=== PATIENT | female | born 1945 ===

== ENCOUNTER 2019-07-07 11:15 | Inpatient (IN) | payer OTHER ==
[~2019-07-07] VITALS: Ht 160 cm; Wt 63.5 kg
[~2019-07-07 11:15] MED LIST: ABILIFY10 MG PO; ARICEPT10 MG PO; CARAFATE PO; CLONAZEPAM0.5 MG PO; CRESTOL PO; DELZICOL400 M1 PO; EST PO; LEXAPRO20 MG PO; LYRICA PO; NORVASC2.5 MG PO; PROSOM PO; VALSARTAN-HCTZ1 EACH PO
[2019-07-20] MEDS ORDERED: CARAFATE1 GM PO (08:15)
[2019-07-20] MEDS ORDERED: PREGABALIN75 MG PO (08:16)
[2019-07-20] MEDS ORDERED: CRESTOR5 MG PO (08:17)
[2019-07-20] MEDS ORDERED: ESTAZOLAM2 MG (08:19)
[2019-07-20] MEDS ORDERED: PERCOCET 5-3251 EACH PO (12:48)
[2019-07-20] MEDS ORDERED: CLONAZEPAM0.5 MG PO (12:48)
[2019-07-20] MEDS ORDERED: COLACE100 MG PO (12:49)
== END 2019-07-21 11:40 | disposition home or self-care (01) | DRG 454 ==
LOC: ADM 11:15 → O/R 07-20 05:15 → SURH 07-20 05:15 → ADM 07-20 11:15 → EDSTATUS 07-20 11:15 → EDBD 07-20 11:15 → SURH 07-20 11:15
PROVIDERS: ADMIT Orthopaedic Surgery Orthopaedic Surgery of the Spine
PROC: 0RG2071 Fusion of 2 or more Cervical Vertebral Joints with Autologous Tissue Substitute, Posterior Approach, Posterior Column, Open Approach (ICD-10-PCS; 2019-07-20)
PROC: 0RT30ZZ Resection of Cervical Vertebral Disc, Open Approach (ICD-10-PCS; 2019-07-20)
PROC: 07DS3ZZ Extraction of Vertebral Bone Marrow, Percutaneous Approach (ICD-10-PCS; 2019-07-20)
PROC: 0RG20A0 Fusion of 2 or more Cervical Vertebral Joints with Interbody Fusion Device, Anterior Approach, Anterior Column, Open Approach (ICD-10-PCS; principal; 2019-07-20 10:00)
DX: M47.12 Other spondylosis with myelopathy, cervical region (principal); M50.021 Cervical disc disorder at C4-C5 level with myelopathy; I10 Essential (primary) hypertension